=== PATIENT | female | born 1995 | race Caucasian/White ===

== ENCOUNTER 2022-08-04 15:35 | Emergency (ER) | payer BC, SELFPAY ==
--- NOTE | ~2022-08-04 | CT_ITS ---
Non-contrast Head CT and Sinus CT History: Headache, congestion Technique: Axial non-contrast imaging of the brain and sinuses was performed. Dose reduction techniq ue was used on this scan by utilizing automated exposure control and iterative reconstruction techniq ue. The dose-length product (DLP) was 681.00 mGy-cm. Brain Findings: There is no evidence of intracranial hemorrhage, mass lesion, or acute infarct. Bra in parenchyma appears normal. The ventricles and subarachnoid spaces are normal in size. The calvar ium appears normal. The visualized paranasal sinuses and mastoid air cells are clear. Sinus findings: There is minimal mucosal thickening of the floor of the right maxillary sinus. Left m axillary sinus, bilateral sphenoid sinuses, and bilateral ethmoid sinuses are clear. There is underpn eumatization of the frontal sinuses bilaterally. Bilateral mastoid air cells are clear. Impression: Unremarkable noncontrast CT of the brain. Minimal mucosal thickening deform the right maxillary sinus. Underpneumatization of the frontal sinuses. Reviewed, dictated and finalized at location . Impression: Unremarkable noncontrast CT of the brain. Minimal mucosal thickening deform the right maxillary sinus. Underpneumatization of the frontal sinuses.
[2022-08-04 15:35] VITALS: BP 143/81; PULSE 97; RESP 16; TEMP 37.1; O2SAT 98
[2022-08-04 16:53] LABS: Basophils Absolute Auto 0.07 K/mm3 (0.00-0.10); Basophils Percent Auto 0.6 % (0.0-1.0); Eosinophils Absolute Auto 0.23 K/mm3 (0.02-0.50); Hematocrit 41.1 % (35.0-49.0); Hemoglobin 13.4 g/dL (12.0-15.0); Immature Granulocyte Absolute 0.05 K/mm3 (0.00-0.00); Immature Granulocyte Percent A 0.4 % (0.0-0.0); Lymphocytes Absolute Auto 4.04 K/mm3 (1.10-4.50); Mean Corpuscular HGB Conc 32.6 g/dL (32.0-36.0); Mean Corpuscular Hemoglobin 27.7 pg (27.0-31.0); Mean Corpuscular Volume 85.1 fL (78.0-102.0); Mean Platelet Volume 8.8 fl (9.2-11.8); Monocytes Absolute Auto 0.56 K/mm3 (0.10-0.90); Neutrophils Absolute Auto 6.3 K/mm3 (1.7-7.2); Platelet Count Result 359 K/mm3 (150-420); Red Blood Count 4.83 M/mm3 (4.20-5.40); Red Cell Distribution Width 11.9 % (11.6-14.4); White Blood Count 11.2 K/mm3 (4.8-10.8)
[2022-08-04 17:12] VITALS: BP 126/81; PULSE 98; RESP 14; O2SAT 97
[2022-08-04 17:16] LABS: Alanine Aminotransferase 34 U/L (14-59); Albumin Level 3.6 g/dL (3.4-5.0); Alkaline Phosphatase 94 U/L (46-116); Anion Gap 8 mmol/L (8-16); Aspartate Amino Transferase 15 U/L (15-37); Bilirubin,Total 0.2 mg/dL (0.00-1.00); Blood Urea Nitrogen 11 mg/dL (7-18); Carbon Dioxide 27 mmol/L (21-32); Chloride 104 mmol/L (98-108); Estimated CRCL calculation 132 ml/min; Estimated Glomerular Filt Rate > 60; Glucose 94 mg/dL (70-99); Osmolality Calculated 287 mOsm/kg (285-295); Sodium 139 mmol/L (136-145); Thyroid Stimulating Hormone 5.36 uIU/mL (0.36-3.74); Total Protein 7.8 g/dL (6.4-8.2)
--- NOTE | 2022-08-04 17:23 | ED.GENADULT ---
HPI - General Adult General Chief complaint: Unspecified Stated complaint: episodes of brain fog and Time Seen by Provider: 08/04/22 15:51 Source: patient and family Mode of arrival: ambulatory History of Present Illness HPI narrative: this is a 26-year-old female presents with some headache pain fatigued with weakness with no shortness of breath no fever chills does have some frontal sinus pressure with no audible wheezing no chest pain no abdominal pain no dysuria no hematuria no flank pain. Onset (ago): month(s) Location: head Severity: moderate Related Data Allergies Allergy/AdvReac Type Severity Reaction Status Date / Time amoxicillin [From Amoxil] Allergy Rash Verified 08/04/22 15:55 Review of Systems Review of Systems: All systems reviewed & are unremarkable except as noted in HPI and below PMFSH Past Medical History Medical History Patient denies medical problems Exam Const: General: cooperative, healthy appearing, comfortable and no acute distress HENMT: Head: normal to inspection Other: frontal sinus tenderness palpation with some bilateral tympanic membrane dullness and turbinates inflamed and red. Eyes: General: appearance normal, both eyes and all related structures Neck: Neck: normal visual inspection Resp: Effort & Inspection: normal respiratory effort Cardio: Jugular venous distension: no JVD Palpation: normal PMI Rate: regular rate Back/Spine/Pelvis: Back: no CVA tenderness Skin: General skin exam: normal color Neuro: General: oriented to person, oriented to place and oriented to time Extrem: General: normal to inspection, full ROM and capillary refill normal Psych: Appearance: grossly normal Mental Status: mental status grossly normal Course Course Emergency Course: Patient had a CT scan which shows mucosal thickening on CT scan of sinuses otherwise CT brain is showing no acute abnormalities, TSH is mildly elevated consistent with hypothyroidism this was explained to the patient and advised close follow-up with primary care physician. Patient also being treated for sinusitis and will administer a dose of Zithromax. Rest of her labs were reviewed and within normal limits. Vital Signs Vital signs: Vital Signs Temperature 37.1 C 08/04/22 15:35 Pulse Rate 97 08/04/22 15:35 Respiratory Rate 16 08/04/22 15:35 Blood Pressure 143/81 H 08/04/22 15:35 Pulse Oximetry 98 08/04/22 15:35 Oxygen Delivery Room Air 08/04/22 15:35 Temperature 37.1 C 08/04/22 15:35 Pulse Rate 98 08/04/22 17:12 Respiratory Rate 14 08/04/22 17:12 Blood Pressure 126/81 08/04/22 17:12 Pulse Oximetry 97 08/04/22 17:12 Oxygen Delivery Room Air 08/04/22 17:12 Medical Decision Making Vital Signs Vital Signs: Vital Signs Temperature 37.1 C 08/04/22 15:35 Pulse Rate 97 08/04/22 15:35 Respiratory Rate 16 08/04/22 15:35 Blood Pressure 143/81 H 08/04/22 15:35 Pulse Oximetry 98 08/04/22 15:35 Oxygen Delivery Room Air 08/04/22 15:35 Temperature 37.1 C 08/04/22 15:35 Pulse Rate 98 08/04/22 17:12 Respiratory Rate 14 08/04/22 17:12 Blood Pressure 126/81 08/04/22 17:12 Pulse Oximetry 97 08/04/22 17:12 Oxygen Delivery Room Air 08/04/22 17:12 Lab Data 08/04/22 16:50 08/04/22 16:50 Labs: Lab Results 08/04/22 Range/Units 16:50 WBC 11.2 H (4.8-10.8) K/mm3 RBC 4.83 (4.20-5.40) M/mm3 Hgb 13.4 (12.0-15.0) g/dL Hct 41.1 (35.0-49.0) % MCV 85.1 (78.0-102.0) fL MCH 27.7 (27.0-31.0) pg MCHC 32.6 (32.0-36.0) g/dL RDW 11.9 (11.6-14.4) % Plt Count 359 (150-420) K/mm3 MPV 8.8 L (9.2-11.8) fl Immature Gran % (Auto) 0.4 H (0.0-0.0) % Neut % (Auto) 56.0 (50.0-70.0) % Lymph % (Auto) 36.0 (18.0-42.0) % [place] % (Auto) 5.0 (2.0-11.0) % Eos % (Auto) 2.0 (1.0-6.0) % Baso % (Auto) 0.6 (0.0-1.
[2022-08-04] MEDS: AZITHROMYCIN 250 MG TABLET 500 MG PO (17:28)
== END 2022-08-04 17:34 | disposition home or self-care (01) ==
PROVIDERS: Emergency Provider Emergency Medicine; PCP Family Medicine
DX: J01.10 Acute frontal sinusitis, unspecified (principal); R94.6 Abnormal results of thyroid function studies
CPT/HCPCS: 36415; 70450; 70486; 80053; 84443; 85025; 99284; A9270